=== PATIENT | female | born 1955 | race Two or more races ===

== ENCOUNTER → 2018-01-06 | Day surgery (SDC) | payer OTHER ==
[~2018-01-06] MED LIST: GLYBURIDE PO; METFORMIN HCL500 MG PO; MIRALAX17 GM PO; PERCOCET 5-3251 EACH PO; PROBIOTIC & AC1 EACH PO; ZETIA10 MG PO
== END | disposition home or self-care (01) ==
LOC: ADM 12-27 12:00 → AMB-ENDOS 06:00
DX: K63.5 Polyp of colon (principal)

== ENCOUNTER 2018-12-02 11:25 | Inpatient (IN) | payer OTHER ==
[~2018-12-02] VITALS: Ht 91.4 cm; Wt 5.0 kg
[2018-12-08] MEDS ORDERED: SYNJARDY 12.5-1 EAC1 (11:33)
[2018-12-14] MEDS ORDERED: Tylenol Extra Streng PO (08:38)
[2018-12-14] MEDS ORDERED: ULTRAM50 MG PO (08:38)
[2018-12-14] MEDS ORDERED: GABAPENTIN100 MG PO (08:38)
[2018-12-14] MEDS ORDERED: POLY119PG PO (08:38)
[2018-12-17] MEDS ORDERED: PERCOCET 5-3251 EACH PO (10:20)
[2018-12-17] MEDS ORDERED: COLACE100 MG PO (10:20)
[2018-12-17] MEDS ORDERED: NEURONTIN300 MG PO (10:20)
== END 2018-12-17 12:44 | disposition home or self-care (01) | DRG 337 ==
LOC: SURG 12-11 10:15 → O/R 12-11 11:38 → SURG 12-11 11:38
PROVIDERS: ADMIT Surgery
PROC: 0WUF0JZ Supplement Abdominal Wall with Synthetic Substitute, Open Approach (ICD-10-PCS; 2018-12-11)
PROC: 0KXL0Z6 Transfer Left Abdomen Muscle, Transverse Rectus Abdominis Myocutaneous Flap, Open Approach (ICD-10-PCS; 2018-12-11)
PROC: 0KXK0Z6 Transfer Right Abdomen Muscle, Transverse Rectus Abdominis Myocutaneous Flap, Open Approach (ICD-10-PCS; 2018-12-11)
PROC: 0WJF4ZZ Inspection of Abdominal Wall, Percutaneous Endoscopic Approach (ICD-10-PCS; 2018-12-11)
PROC: 0DNW0ZZ Release Peritoneum, Open Approach (ICD-10-PCS; principal; 2018-12-11 12:30)
DX: K43.0 Incisional hernia with obstruction, without gangrene (principal); K42.0 Umbilical hernia with obstruction, without gangrene; K66.0 Peritoneal adhesions (postprocedural) (postinfection); E11.9 Type 2 diabetes mellitus without complications

== ENCOUNTER 2020-08-10 07:44 | Day surgery (SDC) | payer OTHER ==
[~2020-08-10 07:44] MED LIST changes: +ADULT LOW DOSE81 M1 PO; +COLACE100 MG PO; +GABAPENTIN100 MG PO; +LIPO-FLAVONOID1 EACH PO; +NEURONTIN300 MG PO; +POLY119PG PO; +SINJARDY PO; +SYNJARDY 12.5-1 EAC1; +TIROSINT25 MCG PO; +Tylenol Extra Streng PO; +ULTRAM50 MG PO
[2020-08-10] MEDS ORDERED: PERCOCET 5-3251 EACH PO (13:14)
== END 2020-08-10 16:10 | disposition home or self-care (01) ==
LOC: CIR.AMB 07:44
PROVIDERS: ATTEND Surgery
DX: C73 Malignant neoplasm of thyroid gland (principal); Z20.822 Contact with and (suspected) exposure to COVID-19